=== PATIENT | male | born 1995 | race African-American/Black ===

== ENCOUNTER 2017-01-23 16:24 | Emergency (ER) | payer BC ==
[~2017-01-23] VITALS: Ht 177.8 cm; Wt 90.0 kg
[~2017-01-23 16:24] MED LIST: NO HOME MEDS
[2017-01-23 17:49] VITALS: BP 138/71
== END 2017-01-23 17:56 | disposition home or self-care (01) | DRG 556 ==
LOC: ED 16:24
DX: M79.651 Pain in right thigh (principal); S76.901A Unspecified injury of unspecified muscles, fascia and tendons at thigh level, right thigh, initial encounter; X58.XXXA Exposure to other specified factors, initial encounter; Y93.61 Activity, american tackle football; Y92.321 Football field as the place of occurrence of the external cause; Y99.0 Civilian activity done for income or pay

== ENCOUNTER 2019-09-15 08:35 | Emergency (ER) | payer MEDICAID ==
[~2019-09-15] VITALS: Ht 177.8 cm; Wt 75.0 kg
[2019-09-15] MEDS ORDERED: AMOXICILLIN500 MG PO ×4 (09:10→13:04)
[2019-09-15 10:04] VITALS: BP 141/80
== END 2019-09-15 10:07 | disposition home or self-care (01) ==
LOC: ED 08:35
DX: S61.215A Laceration without foreign body of left ring finger without damage to nail, initial encounter (principal); L08.9 Local infection of the skin and subcutaneous tissue, unspecified; W27.0XXA Contact with workbench tool, initial encounter; Y93.89 Activity, other specified; Y92.009 Unspecified place in unspecified non-institutional (private) residence as the place of occurrence of the external cause